=== PATIENT | female | born 1955 | race Caucasian/White ===

== ENCOUNTER → 2016-11-27 | Outpatient (CLI) | payer OTHER | LOC: FIMAGING 15:31 | PROVIDERS: ATTEND Physician Assistant Surgical | DX: G91.8 Other hydrocephalus (principal); R51 Headache ==

== ENCOUNTER → 2017-01-24 | Outpatient (CLI) | payer OTHER | LOC: FIMAGING 14:18 | PROVIDERS: ATTEND Physician Assistant Surgical | DX: G91.8 Other hydrocephalus (principal); R51 Headache; M54.2 Cervicalgia ==

== ENCOUNTER → 2017-01-25 | Outpatient (CLI) | payer OTHER | LOC: FIMAGING 09:57 → EDSTATUS 10:01 | PROVIDERS: ATTEND Physician Assistant Surgical | DX: G91.8 Other hydrocephalus (principal); Z98.2 Presence of cerebrospinal fluid drainage device ==

== ENCOUNTER → 2017-02-19 | Outpatient (CLI) | payer OTHER | LOC: FLAB 14:56 | PROVIDERS: ATTEND Physician Assistant Surgical | DX: Z86.79 Personal history of other diseases of the circulatory system (principal); Z98.2 Presence of cerebrospinal fluid drainage device ==